=== PATIENT | male | born 1975 | race Hispanic/Latino ===

== ENCOUNTER 2017-02-11 19:54 | Emergency (ER) | payer OTHER ==
[~2017-02-11] VITALS: Ht 175.3 cm; Wt 106.6 kg
[2017-02-11 20:00] VITALS: BP 163/99
--- NOTE | 2017-02-11 20:20 | ED INFLUENZA/URI COMPLAINT ---
History of Present Illness General Chief Complaint: General Adult Stated Complaint: PT SWOLLENING ,LEFT EAR PAIN,HEADACHES Source: patient Exam Limitations: no limitations Vital Signs & Intake/Output Vital Signs & Intake/Output Vital Signs Date Time Temp Pulse Resp B/P B/P Pulse O2 O2 Flow FiO2 Mean Ox Delivery Rate 02/12 2000 97.8 83 18 163/99 99 Room Air Allergies Coded Allergies: NO KNOWN ALLERGIES (08/01/13) Reconcile Medications Amoxicillin 875 MG TABLET 1 TAB PO BID OTITIS MEDIA Lidocaine HCl (Lidocaine HCl Viscous) 2 % SOLUTION 15 ML PO 4 TIMES/DAY PRN SORE THROAT SWISH, GARGGLE AND SPIT Triage Note: PT TO TRIAGE WITH C/O SORE THROAT, LEFT EAR PAIN, HEADACHE, BODYACHES SICNE YESTERDAY. VSS. PT AFEBRILE IN TRIAGE. Triage Nurses Notes Reviewed? yes Onset: Gradual Duration: day(s): (2) Timing: remote history Severity: moderate Severity Numbers: 8 Prior Episodes/Possible Cause: occassional episodes No Modifying Factors: none Associated Symptoms: fever/chills, headache, nasal congestion, nasal drainage HPI: Patient is a 41-year-old male presenting to the emergency department complaining of nasal congestion, left ear pain, sore throat has been going on for the past 2 days. Patient has been battling with seasonal allergies for the past several weeks and has had congestion but it just got worse a few days ago. Positive chills but denies fevers. No sick contacts or travel. Denies recent antibiotic use. He does take a daily allergy medication but that has not been working. Sore throat sharp in nature worse with swallowing. (YOUNG RAE) Past History Travel History Traveled to [place] past 21 day No Medical History Any Pertinent Medical History? see below for history EENT: allergies Surgical History Surgical History: non-contributory Psychosocial History What is your primary language [place] Tobacco Use: Never used Family History Hx Contributory? No (YOUNG RAE) Review of Systems Review of Systems Constitutional: Reports: see HPI, chills. Denies: diaphoresis, fever, malaise, weakness. Comments Review of systems: See HPI, All other systems negative. Constitutional, no fever or weight loss HEENT: No visual changes Cardiovascular: No chest pain ,palpitation Skin, no jaundice no rashes Respiratory: No dyspnea cough sputum or hemoptysis GI: No nausea no vomiting : No dysuria No hematuria Muscle skeletal: no back pain, no neck pain, Neurologic: No numbness no confusion Psych: No stress anxiety or depression,. Heme/endocrine: No bruising no bleeding no polyuria or polydipsia Immunology: No splenectomy or history of AIDS (YOUNG RAE) Physical Exam Physical Exam General Appearance: well developed/nourished, no apparent distress, alert, awake , comfortable Ears, Nose, Throat: nasal congestion, nasal drainage, Tympanic bulging Comments: Well-developed well-nourished person in no acute distress HEENT: Pupils equally round and reactive to light and accommodation. Nose is atraumatic. External auditory canal clear bilaterally and tympanic membranes are bulging bilaterally, left tympanic membrane is erythematous and bulging. Pharynx is moderately erythematous, no exudate, clearing secretions without difficulty. No swelling or edema. Clear nasal discharge bilaterally. Neck: Supple, no lymphadenopathy, normal range of motion without pain or tenderness Back: Nontender, no CVA tenderness. Full range of motion Cardiovascular: Regular rate and rhythms no murmurs rubs or gallops, normal JVP Respiratory: Chest nontender. No respiratory distress.breath sounds clear to auscultation bilaterally Extremity: No edemA Neuro: Alert oriented x3 Skin: No appreciable rash on exposed skin, skin is warm and dry. Psych: Mood and affect is normal, memory and judgment is normal. Core Measures Severe Sepsis Present: No Septic Shock Present: No (YOUNG RAE) Progress Differential Diagnosis: influenza, otitis, pneumonia, pharyngitis, sinusitis, OTITIS MEDIA, SEASONAL ALLERGIES Plan of Care: Orders Procedure Date/time Status THROAT CULTURE W/QUICK STREP 02/11 2001 Active Initial ED EKG: none (YOUNG RAE) Departure Departure Time of Disposition: 2032 Disposition: HOME OR SELF CARE Condition: Stable Clinical Impression Primary Impression: Otitis media Qualifiers: Otitis media type: unspecified Laterality: left Chronicity: unspecified Qualified Code: H66.92 - Otitis media, unspecified, left ear Secondary Impressions: Hypertension Qualifiers: Hypertension type: essential hypertension Qualified Code: I10 - Essential (primary) hypertension Pharyngitis Qualifiers: Pharyngitis/tonsillitis etiology: unspecified etiology Qualified Code: J02.9 - Acute pharyngitis, unspecified Referrals: PATIENT HAS NO PRIMARY CARE DR (PCP/Family) Additional Instructions: Follow-up with your primary care physician, make appointment. Take antibiotics as prescribed. Increase fluids. Take ibuprofen help with pain. Return for worsening symptoms or concerns. Departure Forms: Customer Survey General Discharge Information Prescriptions: Current Visit Scripts Amoxicillin 1 TAB PO BID #20 TAB Lidocaine HCl (Lidocaine HCl Viscous) 15 ML PO 4 TIMES/DAY PRN SORE THROAT #100 ML SWISH, GARGGLE AND SPIT (YOUNG RAE) PA/CLEARANCE CUTTER Co-Sign Statement Statement: ED Attending supervision documentation- I saw and evaluated the patient. I have also reviewed all the pertinent lab results and diagnostic results. I agree with the findings and the plan of care as documented in the PA's/CLEARANCE CUTTER's documentation. x I have reviewed the ED Record and agree with the PA's/CLEARANCE CUTTER's documentation. [] Additions or exceptions (if any) to the PAs/CLEARANCE CUTTER's note and plan are summarized below: [] (JOCELYN SANCHEZ,JAMIA)
[2017-02-11] MEDS ORDERED: LIDOCAINE HCL V15 ML PO (20:32)
[2017-02-11] MEDS ORDERED: AMOXICILLIN875 M1 PO (20:32)
== END 2017-02-11 20:50 ==
LOC: ERH 19:54
DX: H66.92 Otitis media, unspecified, left ear (principal); I10 Essential (primary) hypertension; J02.9 Acute pharyngitis, unspecified